=== PATIENT | female | born 1980 | race Caucasian/White ===

== ENCOUNTER 2018-05-26 13:56 | Emergency (ER) | payer OTHER ==
[~2018-05-26] VITALS: Ht 167.6 cm; Wt 122.5 kg
[2018-05-26] MEDS ORDERED: MIRENA1 EACH (14:14)
[2018-05-26] MEDS ORDERED: HUMALOG KW200 UNIT/1 (14:15)
[2018-05-26] MEDS ORDERED: LANTUS SOL100 UNIT/1 SUB-Q (14:15)
[2018-05-26] MEDS ORDERED: CYMBALTA60 MG PO (14:16)
[2018-05-26] MEDS ORDERED: ELIQUIS5 MG PO (14:16)
[2018-05-26] MEDS ORDERED: NEURONTIN600 MG PO (14:16)
[2018-05-26] MEDS ORDERED: TOPROL XL50 MG PO (14:17)
[2018-05-26] MEDS ORDERED: PERCOCET 5-3251 EACH PO (14:17)
[2018-05-26] MEDS ORDERED: SOMA350 MG PO (14:18)
[2018-05-26] MEDS ORDERED: METFORMIN HCL500 MG PO (14:18)
== END 2018-05-26 16:13 | disposition home or self-care (01) ==
LOC: ED 13:56
DX: S93.402A Sprain of unspecified ligament of left ankle, initial encounter (principal); S93.602A Unspecified sprain of left foot, initial encounter; E10.9 Type 1 diabetes mellitus without complications; I10 Essential (primary) hypertension; Z87.891 Personal history of nicotine dependence; Z88.2 Allergy status to sulfonamides; Z79.899 Other long term (current) drug therapy; W19.XXXA Unspecified fall, initial encounter
CPT/HCPCS: 73590; 73630; 99283